=== PATIENT | male | born 1945 | race Two or more races ===

== ENCOUNTER 2017-08-15 18:13 | Emergency (ER) | payer OTHER ==
[~2017-08-15] VITALS: Ht 167.6 cm; Wt 82.6 kg
[~2017-08-15 18:13] MED LIST: ALLEGRA ALLERGY60 MG; ALTACE5 MG; ATARAX10 MG; CELEBREX50 MG; ZOCOR5 MG
[2017-08-15] MEDS ORDERED: LIPITOR20 MG (18:43)
== END 2017-08-15 22:29 | disposition home or self-care (01) ==
LOC: ER 18:13
DX: H60.02 Abscess of left external ear (principal); B96.5 Pseudomonas (aeruginosa) (mallei) (pseudomallei) as the cause of diseases classified elsewhere

== ENCOUNTER 2017-10-11 09:52 | Outpatient (CLI) | payer OTHER ==
[~2017-10-11 09:52] MED LIST changes: +LIPITOR20 MG
== END 2017-10-11 11:02 | disposition home or self-care (01) ==
LOC: MRI 09:52
DX: M54.5 Low back pain (principal)
CPT/HCPCS: 72148

== ENCOUNTER 2017-10-12 09:01 | Outpatient (CLI) | payer OTHER | END 2017-10-12 09:04 | disposition home or self-care (01) | LOC: NUCLEAR 09:01 | DX: I87.2 Venous insufficiency (chronic) (peripheral) (principal); I80.222 Phlebitis and thrombophlebitis of left popliteal vein; I80.221 Phlebitis and thrombophlebitis of right popliteal vein; I10 Essential (primary) hypertension; E03.8 Other specified hypothyroidism; I73.9 Peripheral vascular disease, unspecified; R73.01 Impaired fasting glucose; I26.99 Other pulmonary embolism without acute cor pulmonale ==

== ENCOUNTER 2017-10-22 13:27 | Outpatient (CLI) | payer OTHER | END 2017-10-22 13:41 | disposition home or self-care (01) | LOC: LAB 13:27 | DX: I10 Essential (primary) hypertension (principal); E03.8 Other specified hypothyroidism; E08.9 Diabetes mellitus due to underlying condition without complications; D50.8 Other iron deficiency anemias; D51.8 Other vitamin B12 deficiency anemias; R97.0 Elevated carcinoembryonic antigen [CEA]; R97.8 Other abnormal tumor markers; N40.0 Benign prostatic hyperplasia without lower urinary tract symptoms ==

== ENCOUNTER 2018-08-02 11:01 | Outpatient (CLI) | payer OTHER | END 2018-08-02 11:44 | disposition home or self-care (01) | LOC: LAB 11:01 | DX: I80.222 Phlebitis and thrombophlebitis of left popliteal vein (principal); E08.9 Diabetes mellitus due to underlying condition without complications; I80.221 Phlebitis and thrombophlebitis of right popliteal vein; I10 Essential (primary) hypertension; R73.01 Impaired fasting glucose; I26.99 Other pulmonary embolism without acute cor pulmonale; D50.8 Other iron deficiency anemias; D51.8 Other vitamin B12 deficiency anemias; R97.0 Elevated carcinoembryonic antigen [CEA]; R97.8 Other abnormal tumor markers; R97.20 Elevated prostate specific antigen [PSA]; K90.89 Other intestinal malabsorption; I73.89 Other specified peripheral vascular diseases ==

== ENCOUNTER 2019-01-19 13:32 | Emergency (ER) | payer OTHER ==
[~2019-01-19] VITALS: Ht 162.6 cm; Wt 80.3 kg
[2019-01-19] MEDS ORDERED: XARELTO10 MG PO (14:00)
== END 2019-01-19 15:56 | disposition home or self-care (01) ==
LOC: ER 13:32
DX: S30.0XXA Contusion of lower back and pelvis, initial encounter (principal); M54.5 Low back pain; W18.09XA Striking against other object with subsequent fall, initial encounter; Y93.89 Activity, other specified; Y92.098 Other place in other non-institutional residence as the place of occurrence of the external cause; Y99.8 Other external cause status

== ENCOUNTER 2019-02-06 09:56 | Outpatient (CLI) | payer OTHER ==
[~2019-02-06 09:56] MED LIST changes: +XARELTO10 MG PO
== END 2019-02-06 10:00 | disposition home or self-care (01) ==
LOC: LAB 09:56
DX: E08.9 Diabetes mellitus due to underlying condition without complications (principal); I10 Essential (primary) hypertension; I73.89 Other specified peripheral vascular diseases; I26.99 Other pulmonary embolism without acute cor pulmonale; E72.11 Homocystinuria; E72.12 Methylenetetrahydrofolate reductase deficiency; D51.1 Vitamin B12 deficiency anemia due to selective vitamin B12 malabsorption with proteinuria; I80.223 Phlebitis and thrombophlebitis of popliteal vein, bilateral

== ENCOUNTER 2019-02-13 07:45 | Outpatient (CLI) | payer OTHER | END 2019-02-13 07:48 | disposition home or self-care (01) | LOC: TOM 07:45 | DX: I10 Essential (primary) hypertension (principal); I80.222 Phlebitis and thrombophlebitis of left popliteal vein; I80.221 Phlebitis and thrombophlebitis of right popliteal vein; E08.9 Diabetes mellitus due to underlying condition without complications; I73.89 Other specified peripheral vascular diseases; I26.99 Other pulmonary embolism without acute cor pulmonale | CPT/HCPCS: 71275; Q9965 ==

== ENCOUNTER 2019-05-19 09:51 | Outpatient (CLI) | payer OTHER | END 2019-05-19 15:00 | disposition home or self-care (01) | LOC: LAB 09:51 | DX: E72.12 Methylenetetrahydrofolate reductase deficiency (principal); E72.11 Homocystinuria; E08.9 Diabetes mellitus due to underlying condition without complications; I10 Essential (primary) hypertension; D51.8 Other vitamin B12 deficiency anemias; I80.223 Phlebitis and thrombophlebitis of popliteal vein, bilateral; D68.59 Other primary thrombophilia ==

== ENCOUNTER 2019-05-19 11:20 | Outpatient (CLI) | payer OTHER | END 2019-05-19 11:54 | disposition home or self-care (01) | LOC: SONOGRAMA 11:20 | DX: R10.84 Generalized abdominal pain (principal) ==

== ENCOUNTER 2020-01-20 10:28 | Outpatient (CLI) | payer OTHER | END 2020-01-20 10:33 | disposition home or self-care (01) | LOC: LAB 10:28 | PROVIDERS: ATTEND Internal Medicine Hematology & Oncology | DX: D50.8 Other iron deficiency anemias (principal); I10 Essential (primary) hypertension; D68.59 Other primary thrombophilia; E72.12 Methylenetetrahydrofolate reductase deficiency; E72.11 Homocystinuria; E08.9 Diabetes mellitus due to underlying condition without complications; I73.89 Other specified peripheral vascular diseases; I26.99 Other pulmonary embolism without acute cor pulmonale; D51.8 Other vitamin B12 deficiency anemias; I80.223 Phlebitis and thrombophlebitis of popliteal vein, bilateral ==

== ENCOUNTER 2020-04-06 06:45 | Outpatient (CLI) | payer OTHER | END 2020-04-06 06:54 | disposition home or self-care (01) | LOC: LAB 06:45 | PROVIDERS: ATTEND Urology | DX: N40.0 Benign prostatic hyperplasia without lower urinary tract symptoms (principal) ==

== ENCOUNTER 2020-04-06 07:21 | Outpatient (CLI) | payer OTHER | END 2020-04-06 07:23 | disposition home or self-care (01) | LOC: SONOGRAMA 07:21 → MAMO-SONO 08:15 | DX: R10.84 Generalized abdominal pain (principal) ==

== ENCOUNTER → 2020-06-18 10:10 | Outpatient (CLI) | payer OTHER | END | disposition home or self-care (01) | LOC: LAB 10:10 | DX: N64.89 Other specified disorders of breast (principal); R74.01 Elevation of levels of liver transaminase levels; N39.0 Urinary tract infection, site not specified; E78.49 Other hyperlipidemia ==

== ENCOUNTER 2020-10-30 11:05 | Emergency (ER) | payer OTHER ==
[~2020-10-30] VITALS: Ht 167.6 cm; Wt 81.6 kg
== END 2020-10-30 17:45 | disposition home or self-care (01) ==
LOC: ER 11:05
DX: A04.9 Bacterial intestinal infection, unspecified (principal); M47.897 Other spondylosis, lumbosacral region

== ENCOUNTER → 2021-04-08 08:34 | Outpatient (CLI) | payer OTHER | END | disposition home or self-care (01) | LOC: LAB 08:34 | PROVIDERS: ATTEND Internal Medicine Hematology & Oncology | DX: I80.222 Phlebitis and thrombophlebitis of left popliteal vein (principal); E72.12 Methylenetetrahydrofolate reductase deficiency; D68.59 Other primary thrombophilia; E72.11 Homocystinuria; I80.221 Phlebitis and thrombophlebitis of right popliteal vein; E08.9 Diabetes mellitus due to underlying condition without complications; I10 Essential (primary) hypertension; I73.89 Other specified peripheral vascular diseases; I26.99 Other pulmonary embolism without acute cor pulmonale; D50.8 Other iron deficiency anemias; R74.02 Elevation of levels of lactic acid dehydrogenase [LDH]; K76.89 Other specified diseases of liver; R97.0 Elevated carcinoembryonic antigen [CEA] ==

== ENCOUNTER 2021-05-23 08:42 | Emergency (ER) | payer OTHER ==
[~2021-05-23] VITALS: Ht 167.6 cm; Wt 82.6 kg
[2021-05-23] MEDS ORDERED: ATIVAN1 M1 (09:11)
[2021-05-23] MEDS ORDERED: RESTORIL30 MG (09:11)
[2021-05-23] MEDS ORDERED: CLOTRIMAZOLE-BE15 G1 TOP (11:15)
== END 2021-05-23 11:27 | disposition home or self-care (01) ==
LOC: ER 08:42
DX: B35.6 Tinea cruris (principal)

== ENCOUNTER 2021-06-29 08:34 | Outpatient (CLI) | payer OTHER ==
[~2021-06-29 08:34] MED LIST changes: +ATIVAN1 M1; +CLOTRIMAZOLE-BE15 G1 TOP; +RESTORIL30 MG
== END 2021-06-29 08:35 | disposition home or self-care (01) ==
LOC: SONOGRAMA 08:34
PROVIDERS: ATTEND Internal Medicine Gastroenterology
DX: R10.84 Generalized abdominal pain (principal)

== ENCOUNTER 2021-07-20 11:29 | Outpatient (CLI) | payer OTHER | END 2021-07-20 11:38 | disposition home or self-care (01) | LOC: RAD 11:29 | PROVIDERS: ATTEND Physical Medicine & Rehabilitation | DX: M25.512 Pain in left shoulder (principal) ==

== ENCOUNTER 2021-11-23 10:04 | Outpatient (CLI) | payer OTHER | END 2021-11-23 10:07 | disposition home or self-care (01) | LOC: SONOGRAMA 10:04 | PROVIDERS: ATTEND Physical Medicine & Rehabilitation | DX: M25.512 Pain in left shoulder (principal) ==

== ENCOUNTER 2022-02-17 10:25 | Outpatient (CLI) | payer OTHER | END 2022-02-17 10:36 | disposition home or self-care (01) | LOC: RAD 10:25 | PROVIDERS: ATTEND Physical Medicine & Rehabilitation | DX: M25.512 Pain in left shoulder (principal) ==

== ENCOUNTER 2022-03-22 12:42 | Outpatient (CLI) | payer OTHER | END 2022-03-22 12:51 | disposition home or self-care (01) | LOC: MRI 12:42 | PROVIDERS: ATTEND Physical Medicine & Rehabilitation | DX: M54.17 Radiculopathy, lumbosacral region (principal) | CPT/HCPCS: 72148 ==

== ENCOUNTER 2022-04-25 14:10 | Outpatient (CLI) | payer OTHER | END 2022-04-25 14:24 | disposition home or self-care (01) | LOC: RAD 14:10 | PROVIDERS: ATTEND Orthopaedic Surgery | DX: M25.511 Pain in right shoulder (principal); M25.512 Pain in left shoulder ==

== ENCOUNTER 2022-11-15 08:47 | Outpatient (CLI) | payer OTHER ==
[2022-11-16] MEDS ORDERED: NEURONTIN300 MG PO (23:14)
[2022-11-16] MEDS ORDERED: CRESTOR5 MG PO (23:14)
[2022-11-16] MEDS ORDERED: PENTOXIFYLLINE400 MG PO (23:16)
== END 2022-11-15 09:01 | disposition home or self-care (01) ==
LOC: RAD 08:47
DX: M54.2 Cervicalgia (principal)

== ENCOUNTER 2022-11-16 22:01 | Emergency (ER) | payer OTHER ==
[~2022-11-16] VITALS: Ht 167.6 cm; Wt 84.4 kg
[2022-11-16] MEDS ORDERED: CRESTOR5 MG PO (23:14)
[2022-11-16] MEDS ORDERED: NEURONTIN300 MG PO (23:14)
[2022-11-16] MEDS ORDERED: PENTOXIFYLLINE400 MG PO (23:16)
[2022-11-17] MEDS ORDERED: MUPIROCIN1 G1 TOP (01:37)
[2022-11-17] MEDS ORDERED: CEPHALEXIN500 MG PO (01:37)
== END 2022-11-17 01:49 ==
LOC: ER 22:01
DX: S00.81XA Abrasion of other part of head, initial encounter (principal); W18.39XA Other fall on same level, initial encounter; Y93.89 Activity, other specified; Y92.018 Other place in single-family (private) house as the place of occurrence of the external cause; S89.81XA Other specified injuries of right lower leg, initial encounter

== ENCOUNTER 2022-11-21 09:27 | Outpatient (CLI) | payer OTHER ==
[~2022-11-21 09:27] MED LIST changes: +CEPHALEXIN500 MG PO; +CRESTOR5 MG PO; +MUPIROCIN1 G1 TOP; +NEURONTIN300 MG PO; +PENTOXIFYLLINE400 MG PO
== END 2022-11-21 09:35 | disposition home or self-care (01) ==
LOC: MRI 09:27
PROVIDERS: ATTEND Psychiatry & Neurology Neurology
DX: R51.9 Headache, unspecified (principal)
CPT/HCPCS: 70551

== ENCOUNTER 2023-01-03 13:50 | Outpatient (CLI) | payer OTHER | END 2023-01-03 14:05 | disposition home or self-care (01) | LOC: RAD 13:50 | PROVIDERS: ATTEND Psychiatry & Neurology Neurology | DX: M25.512 Pain in left shoulder (principal) ==

== ENCOUNTER 2023-01-05 13:14 | Outpatient (CLI) | payer OTHER | END 2023-01-05 13:22 | disposition home or self-care (01) | LOC: SONOGRAMA 13:14 | PROVIDERS: ATTEND Internal Medicine Cardiovascular Disease | DX: M12.9 Arthropathy, unspecified (principal) ==

== ENCOUNTER 2024-07-09 07:24 | Outpatient (CLI) | payer OTHER | END 2024-07-09 07:25 | disposition home or self-care (01) | LOC: NUCLEAR 07:24 | PROVIDERS: ATTEND Internal Medicine Gastroenterology | DX: K31.84 Gastroparesis (principal) | CPT/HCPCS: 78264; A9541 ==

== ENCOUNTER 2024-09-25 09:31 | Outpatient (CLI) | payer OTHER | END 2024-09-25 09:55 | disposition home or self-care (01) | LOC: MRI 09:31 | PROVIDERS: ATTEND Psychiatry & Neurology Neurology | DX: R42 Dizziness and giddiness (principal) | CPT/HCPCS: 70551 ==

== ENCOUNTER 2025-02-24 10:05 | Outpatient (CLI) | payer OTHER | END 2025-02-24 10:10 | disposition home or self-care (01) | LOC: SONOGRAMA 10:05 | PROVIDERS: ATTEND Internal Medicine Nephrology | DX: N18.2 Chronic kidney disease, stage 2 (mild) (principal); N40.0 Benign prostatic hyperplasia without lower urinary tract symptoms ==